=== PATIENT | male | born 1965 | race Caucasian/White ===

== ENCOUNTER → 2019-01-05 | Outpatient (CLI) | payer BC ==
--- NOTE | 2019-01-05 22:44 | MR ---
EXAMINATION TYPE: MR sacroiliac joints wo con DATE OF EXAM: 01/05/2019 COMPARISON: None. HISTORY: Sacroiliitis per order. Pelvic pain and swelling for 2 years per patient. Standard multiplanar, multisequence MRI departmental protocol Multiplanar, multisequence images of the pelvis focusing on the sacroiliac joints were acquired. FINDINGS: Sacroiliac joints show no suspicious adjacent edema. No suspicious narrowing or sclerosis i s present. No significant spurring is identified. Sacral alar maintained. Visualized pelvis is within normal limits. IMPRESSION: No MRI evidence for acute or significant chronic sacroiliitis.
== END | disposition home or self-care (01) ==
LOC: RADMRIMAIN 14:30
PROVIDERS: ATTEND Internal Medicine Rheumatology
DX: Z09 Encounter for follow-up examination after completed treatment for conditions other than malignant neoplasm (principal); Z87.39 Personal history of other diseases of the musculoskeletal system and connective tissue
CPT/HCPCS: 72195